=== PATIENT | male | born 1995 | race Caucasian/White ===

== ENCOUNTER 2018-07-08 14:15 | Day surgery (SDC) | payer OTHER ==
[~2018-07-08 14:15] MED LIST: ACETAMINOPHEN 1,000 MG/100 ML RTUPB IV ONE; CEFAZOLIN 2 GM/D5W RTU 2 GM/50 ML RTUPB IV ONE; CEFAZOLIN 2 GM/D5W RTU 2 GM/50 ML RTUPB IV PRN; DEXAMETHASONE SOD PHOSPHATE INJ 4 MG/1 ML VIAL ONE; FENTANYL CITRATE INJ/PF 250 MCG/5 ML AMPULE ONE; LIDOCAINE 1% INJ-PF (10 MG/ML) 30 ML SDV ONE; MIDAZOLAM 2 MG/2 ML INJ ONE; ONDANSETRON HCL INJ/PF 4 MG/2 ML SDV ONE; PROPOFOL INJ 200 MG/20 ML VIAL IV ONE
[2018-07-08 14:50] LABS: HEMATOCRIT 35.6 % (37.9-51.0); HEMOGLOBIN 12.3 g/dL (13.5-17.0); MEAN CORPUSCULAR HEMOGLOBIN 30.9 pg (27.0-33.4); MEAN CORPUSCULAR HGB CONC 34.4 g/dL (32.0-36.0); MEAN CORPUSCULAR VOLUME 90 fl (80-97); PLATELET COUNT 263 10^3/uL (150-450); RED BLOOD COUNT 3.97 10^6/uL (4.35-5.55); RED CELL DISTRIBUTION WIDTH 12.6 % (11.5-14.0); WHITE BLOOD COUNT 6.6 10^3/uL (4.0-10.5)
[2018-07-08] MEDS ORDERED: LIDOCAINE 1%/EPINEPHRINE INJ 20 ML VIAL ONE (16:18)
[2018-07-08] MEDS ORDERED: MORPHINE SULFATE 10 MG/ML INJ IV PRN ×2 (17:13→18:49)
[2018-07-08] MEDS ORDERED: FENTANYL CITRATE INJ/PF 100 MCG/2 ML AMPUL IV PRN ×3 (17:13)
[2018-07-08] MEDS ORDERED: DIPHENHYDRAMINE HCL 50 MG/ML VIAL IV PRN (17:13)
[2018-07-08] MEDS ORDERED: ONDANSETRON HCL INJ/PF 4 MG/2 ML SDV IV PRN ×2 (17:13→18:49)
[2018-07-08] MEDS ORDERED: PROMETHAZINE HCL INJ 25 MG/1 ML VIAL IV PRN ×2 (17:13)
[2018-07-08] MEDS ORDERED: MEPERIDINE HCL/PF INJ 25 MG/1 ML DISP.SYRIN IV PRN (17:13)
[2018-07-08] MEDS ORDERED: OXYCODONE-ACETAMINOPHEN 5-325 MG TABLET PO PRN (18:49)
--- NOTE | 2018-07-08 18:59 | Operative Report ---
Operative Report DATE OF SURGERY: 07/08/18 PREOPERATIVE DIAGNOSIS: Left small finger flexor tendon laceration POSTOPERATIVE DIAGNOSIS: Left small finger FDP laceration with radial/ulnar digital nerve laceration OPERATION: 1. Zone II FDP repair left small finger. 2. Primary repair of radial/ulnar digital nerve left small finger SURGEON: VIRGINIA FERRER ANESTHESIA: LMAC COMPLICATIONS: None ESTIMATED BLOOD LOSS: Minimal PROCEDURE: Indication for above procedure: 22-year-old male who sustained a laceration to his left small finger when he hit a window. Patient was seen in my office at which point we discussed treatment options and decision was made to proceed with operative intervention. Risks and benefits were explained to the patient patient verbalized understanding consented for the procedure. Also discussed postoperative prognosis and importance of rehabilitation. Procedure In Detail: Patient was seen and evaluated in the preoperative holding area. The upper extremity was initialized and marked. Patient received 2g of Ancef IV for bacterial prophylaxis. In the preoperative hold area 10 cc of 1% lidocaine with epinephrine was injected. Patient was taken back to the operative room where transferred to the operative table and placed under LMAC. Once they were adequately anesthetized a skin surgical team debriefing was performed ensuring all instrumentation was available, the surgical procedure was discussed with possible concerns reviewed. The upper extremity was prepped with Betadine and draped in a sterile fashion. A timeout was done identifying correct patient, procedure and extremity everyone in attendance agree with this and verbalized no concerns. Additional 2 cc were injected at the distal palmar crease, MP joint, PIP joint and 1 cc at the DIP joint. Patient's previous sutures were removed. Incision was extended proximally to the level of the distal palmar crease with Dixon extensions and a midline incision was made along the distal phalanx. Blunt dissection performed. Inspection demonstrated disruption of the FDP tendon at zone II with intact FDS. The tendon was located just proximal to the A1 tima. The palmar aponeurotic tima was then released to retrieve the FDP. The FDP was then fed through the tima system with smooth pickups avoiding over manipulation of the tendon. Once the tendon was brought through the A2 tima and out to the distal stump it was secured with 22-gauge needle. Epitendinous repair was performed along the dorsal wall with 6-0 Prolene, core suture flexor tendon repair was then performed with 4 stranded modified Leon suture with 40 Fiber Loop and then the epitendinous repair was completed along the volar wall with a running simple suture. Patient was then awoken from anesthesia he was able to make a full fist and full extension there is no evidence of catching or locking. No gapping under direct visualization. Wound is then copiously irrigated with normal saline. Expiration demonstrate disruption of the radial and ulnar digital nerves the nerve edges were then debrided back to normal fascicles. A 3 x 15 mm Axogen nerve protector was placed along the proximal stump of the ulnar digital nerve and a 4 x 15 along the proximal stump radial digital nerve. Under microscope magnification epineural repair was performed with 9-0 nylon suture 2 sutures placed in each digital nerve tensionless repair was achieved there is no gapping with digit range of motion. The repair was then reinforced with Tisseel fibrin glue and the nerve protector secured with 8-0 nylon over the repair site. Wound was copiously irrigated with normal saline. Skin was closed with interrupted 4-0 and 3-0 nylon suture. Patient had normal skin turgor and return of capillary refill. Wound was dressed with Xeroform 4 x 4's and patient was placed in a dorsal blocking splint with the wrist at 10 degrees of extension MP joints at 60 degrees of flexion and IP joint at neutral. Sponge counts, instrument counts, needle counts were correct. Patient was then awoken from anesthesia. Transferred from the operating room table to the operating room stretcher. There was no intraoperative complications patient tolerated procedure well stable to PACU. Postoperative plan: Patient will follow in the office in 2 weeks for suture removal. In the meantime will begin occupational therapy as per [facility] protocol with patient fitted for a thermoplastic splint wrist at 20 degrees extension MP joints at 6 degrees of flexion and IP joints at neutral. Patient may begin active range of motion immediately but no place and hold exercises as per protocol.
--- NOTE | 2018-07-08 19:01 | Discharge Summary ---
Discharge Summary (SDC) - Discharge Final Diagnosis: Left small finger flexor tendon laceration, digital nerve laceration Date of Surgery: 07/08/18 Discharge Date: 07/08/18 Condition: Good Treatment or Instructions: Schedule Follow Up w/ Dr. Keshawn Matthew @ [facility] to be seen in 10-14 days or as scheduled [place]: [place]: [place]: Continue splint until occupational therapy customized thermoplastic removable splint Ice and elevate Stool softener of choice when on pain medication. Prescriptions: Ketorolac Tromethamine [Toradol 10 mg Tablet] 10 mg PO Q8HP PRN #12 tablet PRN Reason: Oxycodone HCl/Acetaminophen [Percocet 5-325 mg Tablet] 1 tab PO Q6 PRN #25 tab PRN Reason: Discharge Diet: As Tolerated Respiratory Treatments at Home: Deep Breathing/Coughing Discharge Activity: No Lifting Over 10 Pounds, No Lifting/Push/Pulling Report the Following to Your Physician Immediately: Fever over 101 Degrees, Unusual Bleeding, Redness, Swelling, Warmth, Increased Soreness
[2018-07-08 20:19] VITALS: BP 129/78
== END 2018-07-08 20:36 | disposition home or self-care (01) ==
LOC: OROUT 14:15 → 2N 19:32 → OROUT 20:36
PROVIDERS: ATTEND Orthopaedic Surgery
DX: S66.127A Laceration of flexor muscle, fascia and tendon of left little finger at wrist and hand level, initial encounter (principal); S64.497A Injury of digital nerve of left little finger, initial encounter; S61.217A Laceration without foreign body of left little finger without damage to nail, initial encounter; W25.XXXA Contact with sharp glass, initial encounter; W22.09XA Striking against other stationary object, initial encounter
CPT/HCPCS: 36415; 85027; 26356; 64910 ×2; C9250; C1763; J2250; J1100; J3010; J3490 ×2; J2405; J2704; J0690; J0131; 1810